=== PATIENT | female | born 2005 | race Caucasian/White ===

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

== ENCOUNTER → 2025-03-15 08:28 | Outpatient (BNVA) | payer OTHER, SELFPAY | PROVIDERS: PCP Family Medicine; Visit Provider Family Medicine | DX: R11.2 Nausea with vomiting, unspecified (principal) | CPT/HCPCS: 80053; 81000; 83690; 85025 ==

== ENCOUNTER 2025-04-05 09:44 | Outpatient (CLI) | payer OTHER, SELFPAY ==
--- NOTE | 2025-04-05 10:00 | US_ITS ---
WS: [id number] Abdomen ultrasound, 04/05/2025 Clinical Data: abd pain, postprandial n/v Comparison: None. Findings: The pancreas shows no cyst, pseudocyst or evidence of pancreatitis. The liver shows no cysts, masses or dilated intrahepatic ducts. The liver shows normal echotexture. The portal vein measures 0.9 cm with hepatopetal flow. The liver measures 13.3 cm. The gallbladder has no stones or sludge. The wall measures 0.2 cm with no pericholecystic fluid. The common bile duct is 0.2 cm and no intraductal abnormalities are noted. The right kidney is 9.5 cm. No cysts, masses or hydronephrosis is seen. The left kidney is 9.9 cm. No cysts, masses or hydronephrosis is seen. The abdominal aorta is not dilated and the inferior vena cava has normal flow. No vascular abnormalities are seen. The spleen measures 9.3 cm and there are no intrasplenic masses or capsular abnormalities. US/US abdomen complete* [id number] Impression: Negative abdomen ultrasound.
== END 2025-04-05 09:45 | disposition home or self-care (01) ==
PROVIDERS: PCP Family Medicine; Visit Provider Family Medicine
DX: R11.2 Nausea with vomiting, unspecified (principal)
CPT/HCPCS: 76700